=== PATIENT | male | born 1950 | race Caucasian/White ===

== ENCOUNTER 2016-10-17 12:16 | Emergency (ER) | payer OTHER ==
[~2016-10-17] VITALS: Ht 175.3 cm; Wt 111.2 kg
[~2016-10-17 12:16] MED LIST: ASPIR 8181 M1 PO; BENZONATATE100 MG PO; CALCIUM 600 +1 EAC4 PO; CALCIUM 600 MG1 EACH PO; DIOVAN160 MG PO; LEVAQUIN750 MG PO; LOVASTATIN40 MG PO; METFORMIN HCL500 MG PO; PREDNISONE10 MG PO; VALSARTAN160 MG PO; VENTOLIN HFA18 GM IH
[2016-10-17] MEDS ORDERED: PREDNISONE20 MG PO (14:31)
[2016-10-17] MEDS ORDERED: MOTRIN800 MG PO (14:31)
[2016-10-17] MEDS ORDERED: FLEXERIL10 MG PO (14:31)
[2016-10-17 14:45] VITALS: BP 157/93
== END 2016-10-17 14:46 | disposition home or self-care (01) ==
LOC: EME 12:16
DX: R51 Headache (principal); M54.9 Dorsalgia, unspecified; V49.40XA Driver injured in collision with unspecified motor vehicles in traffic accident, initial encounter
CPT/HCPCS: 99281; 99283; J1885; J7512